=== PATIENT | female | born 1965 | race Caucasian/White ===

== ENCOUNTER → 2017-01-07 | Outpatient (CLI) | payer OTHER ==
[~2017-01-07] MED LIST: GADOBUTROL 10 ML VIAL IVP ONE
== END ==
LOC: FIMAGING 11:22
DX: H53.481 Generalized contraction of visual field, right eye (principal); R94.02 Abnormal brain scan
CPT/HCPCS: A9585

== ENCOUNTER 2018-01-18 10:07 | Emergency (ER) | payer OTHER ==
[2018-01-18 10:13] VITALS: BP 133/92
--- NOTE | 2018-01-18 10:22 | EDPHY ---
General Time Seen by Provider: 01/18/18 10:16 Narrative: CHIEF COMPLAINT: Foot pain HISTORY OF PRESENT ILLNESS: Patient presents with complaints of right foot pain. Pain started last night after work over the area of the 1st MTP joint of the right foot. This was after being on her feet all day. She reports moderate to severe pain in the base of the right 1st metatarsal at the MTP joint. It was worse this morning when she awoke. Worse with palpation ambulation. Improved at rest. Does not radiate. No numbness, tingling weakness. No trauma or injury. Does have chronic bunions. She has no redness or warmth. No other associated complaints or modifying factors. DOMINANT EXTREMITY: Right ESTABLISHED ORTHOPEDIST: None REVIEW OF SYSTEMS: Ten systems reviewed and are negative unless otherwise noted in the HPI PAST MEDICAL HISTORY: Hypothyroid, chronic bunions PAST SURGICAL HISTORY: No recent surgical history SOCIAL HISTORY: Never smoker lives independently with her spouse. 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 Good signs of perfusion to the lower extremities. Neurological: A&O, light sensory symmetric, normal proprioception of the great toes. Skin: Warm and dry, no rash. No petechiae. No purpura. No cellulitis, warmth or ecchymosis. Extremities: Tenderness of the right foot over the 1st MTP joint, plantar greater than dorsal. There is no palpable nodule. No crepitus or deformity. Range of motion lower extremities symmetric. All compartments are soft the right lower extremity. Psychiatric: Mood and affect normal DIFFERENTIAL DIAGNOSES: Including but not limited to bunion, stress fracture, metatarsalgia, MDM: 10:20 a.m. Acute pain in the right foot 1st MTP joint with chronic bunions present. Possible stress fracture. No acute injury recently. There is no evidence of cellulitis, abscess, osteomyelitis, septic joint or compartment syndrome. X- ray ordered. She is declining medication. 10:30 a.m. X-ray as read by me, without radiologist, reveal is extensive change consistent with her bunion with possible lucency at the distal portion of the 1st metatarsal. No significant fracture or comminuted fracture. No displacement. I have re-evaluated the patient. We discussed postop shoe, ice, elevation anti- inflammatories. We discussed follow up with Podiatry Orthopedics for definitive care. She is comfortable this plan. Discharged home stable condition. SUPERVISION: This patient was independently evaluated without direct involvement of or examination by the attending physician. - Diagnostics Imaging Results: Imaging Impressions Foot X-Ray 01/18/18 10:21 Impression: Negative for fracture. Hallux valgus deformity is seen with associated degenerative change. Imaging: I viewed and interpreted images myself - History History Review: I reviewed the patient's medical records, I obtained additional history from the patient's family Smoking Status: Never smoked - Objective Vital Signs: Initial Vital Signs Temperature (C) 97.9 F 01/18/18 10:10 Heart Rate 89 01/18/18 10:10 Respiratory Rate 18 01/18/18 10:10 Blood Pressure 133/92 H 01/18/18 10:10 O2 Sat (%) 94 01/18/18 10:10 O2 Delivery Mode Room Air Allergies/Adverse Reactions: No Known Allergies Allergy (Unverified 01/18/18 10:13) Home Medications: Medication Instructions Recorded Cytomel 01/18/18 Synthroid 01/18/18 Departure - Departure Disposition: Home, Routine, Self-Care Clinical Impression: Metatarsalgia of right foot, Bunion of great toe of right foot Condition: Good Instructions: Bunion (ED), Bunionectomy (DC), Metatarsalgia (DC) Additional Instructions: 1. Postop shoe as needed 2. Ice and elevate often 3. [id number] Aleve, 2 pills by mouth twice daily 4. Follow up with supervisor chemical Orthopedics for definitive care Referrals: Yoel Vargas DPM [Doctor of Podiatric Medicine] - As per Instructions Kyle Vallejo MD [Medical Doctor] - As per Instructions Stand Alone Forms: Work Excuse
== END 2018-01-18 10:53 | disposition home or self-care (01) ==
DX: M77.41 Metatarsalgia, right foot (principal); M21.611 Bunion of right foot
CPT/HCPCS: L4386

== ENCOUNTER → 2018-03-24 | Outpatient (CLI) | payer OTHER | LOC: BMCIMAGING 16:07 | PROVIDERS: ATTEND Podiatrist Foot & Ankle Surgery | DX: M20.11 Hallux valgus (acquired), right foot (principal) ==

== ENCOUNTER → 2018-07-22 | Outpatient (CLI) | payer OTHER | LOC: FIMAGING 13:11 | PROVIDERS: ATTEND Internal Medicine | DX: M25.50 Pain in unspecified joint (principal); M17.0 Bilateral primary osteoarthritis of knee; M51.36 Other intervertebral disc degeneration, lumbar region ==